=== PATIENT | male | born 1955 | race African-American/Black ===

== ENCOUNTER 2016-07-02 16:16 | Emergency (ER) | payer OTHER ==
[2016-07-02 16:24] VITALS: BP 125/71; PULSE 83; TEMP 97.6; BMI 23.7
[2016-07-02] MEDS ORDERED: NAPROXEN 375 MG TABLET (FP) PO ONE (16:53)
[2016-07-02] MEDS ORDERED: CYCLOBENZAPRINE HCL 10 MG TABLET (FP) PO ONE (16:54)
[2016-07-02] MEDS ORDERED: NAPROXEN 500 MG TABLET (FP) ONE (16:55)
[2016-07-02] MEDS ORDERED: CYCLOBENZAPRINE HCL 10 MG TABLET (FP) ONE (16:56)
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
== END 2016-07-02 19:48 | disposition home or self-care (01) ==
LOC: JERFT 16:16
DX: S16.1XXA Strain of muscle, fascia and tendon at neck level, initial encounter (principal); S39.012A Strain of muscle, fascia and tendon of lower back, initial encounter; V43.62XA Car passenger injured in collision with other type car in traffic accident, initial encounter; Y92.414 Local residential or business street as the place of occurrence of the external cause; Y99.8 Other external cause status
CPT/HCPCS: 72100-TC; 72125-TC; 99281-25

== ENCOUNTER 2017-05-08 16:01 | Inpatient (IN) | payer OTHER ==
[2017-05-08 17:56] VITALS: BMI 21.7
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
[2017-05-08] MEDS ORDERED: LOPERAMIDE HCL 2 MG CAPSULE PO PRN (21:22)
[2017-05-08] MEDS ORDERED: guaiFENesin/D-METHORPHAN HB 10 ML UNIT-DOSE CUPS PO PRN (21:22)
[2017-05-08] MEDS ORDERED: MAG HYDROX/AL HYDROX/SIMETH 30 ML UNIT-DOSE CUP PO PRN (21:22)
[2017-05-08] MEDS ORDERED: NICOTINE POLACRILEX 2 MG GUM BUC PRN (21:22)
[2017-05-08] MEDS ORDERED: hydrOXYzine PAMOATE 50 MG CAPSULE (FP) PO PRN (21:22)
[2017-05-08] MEDS ORDERED: ACETAMINOPHEN 325 MG TABLET (FP) PO PRN (21:22)
[2017-05-08] MEDS ORDERED: MAGNESIUM HYDROX 2400MG/30ML ORAL SUSPENSION 30 ML CUP PO PRN (21:22)
[2017-05-08] MEDS ORDERED: MENTHOL/PHENOL 1 EACH UD MM PRN (21:22)
[2017-05-08] MEDS ORDERED: P-EPHED 60MG/TRIPROLIDI 2.5MG TABLET PO PRN (21:22)
[2017-05-08] MEDS ORDERED: MAGNESIUM CITRATE 300 ML BOTTLE PO PRN (21:22)
[2017-05-08] MEDS ORDERED: IBUPROFEN 400 MG TABLET (FP) PO PRN (21:22)
[2017-05-08] MEDS ORDERED: diazePAM 5 MG TABLET PO ONE (21:45)
[2017-05-08] MEDS ORDERED: FLUTICASONE/SALMETEROL 100 MCG/50 MCG DISKUS IH SCH (22:00)
[2017-05-08] MEDS: amLODIPine BESYLATE 5 MG TABLET (FP) PO SCH (23:13)
[2017-05-08] MEDS: ATORVASTATIN CA 40 MG TABLET (FP) PO SCH (23:13)
[2017-05-08] MEDS: cloNIDine HCL 0.1 MG TABLET PO PRN (23:13)
[2017-05-08] MEDS: CYCLOBENZAPRINE HCL 10 MG TABLET (FP) PO PRN (23:13)
[2017-05-08] MEDS: BUDESONIDE/FORMETEROL FUMARATE 80/4.5 mcg INHALER IH SCH (23:13)
[2017-05-08] MEDS: ASPIRIN COATED 81 MG TABLET.EC PO SCH (23:13)
[2017-05-08] MEDS: THIAMINE HCL 100 MG TABLET (FP) PO SCH (23:20)
[2017-05-08] MEDS: diazePAM 5 MG TABLET PO SCH (23:20)
[2017-05-09 00:25] LABS: URINE APPEARANCE CLEAR; URINE BILIRUBIN NEGATIVE (NEGATIVE); URINE BLOOD NEGATIVE (NEGATIVE); URINE COLOR YELLOW; URINE GLUCOSE (UA) NEGATIVE (NEGATIVE); URINE KETONE TRACE (NEGATIVE); URINE LEUK ESTERASE NEGATIVE (NEGATIVE); URINE NITRITE NEGATIVE (NEGATIVE); URINE PROTEIN NEGATIVE (NEGATIVE)
[2017-05-09] MEDS: diazePAM 5 MG TABLET PO SCH ×3 (06:59→22:19)
--- NOTE | 2017-05-09 09:43 | PN ---
S CIWA - CIWA Score Nausea/Vomitin Muscle Tremors: 3 Anxiety: 3 Agitation: 3 Paroxysmal Sweats: 1-Minimal Palms Moist Orientation: 0-Oriented Tacttile Disturbances: 1-Very Mild Itch/Numbness Auditory Disturbances: 1-Very Mild Visual Disturbances: 1-Very Mild Sensitivity Headache: 2-Mild CIWA-Ar Total Score: 18 BHS Progress Note (SOAP) Subjective: ALERT,IRRITABLE,ANXIOUS,INTERRUPTED SLEEP,TREMOR,PAIN IN THE BODY Objective: 05/09/17 09:41 Vital Signs Temperature 97.2 F L 05/09/17 02:29 Pulse Rate 95 H 05/09/17 02:29 Respiratory Rate 18 05/09/17 03:30 Blood Pressure 122/67 05/09/17 02:29 O2 Sat by Pulse Oximetry (%) EKG NSR NO CHEST PAIN,NO SOB,NO DIZZINESS Laboratory Last Values Urine Color Yellow 05/08/17 23:10 Urine Appearance Clear 05/08/17 23:10 Urine pH 5.0 (5.0-8.0) 05/08/17 23:10 Ur Specific [place] 1.024 (1.001-1.035) 05/08/17 23:10 Urine Protein Negative (NEGATIVE) 05/08/17 23:10 Urine Glucose (UA) Negative (NEGATIVE) 05/08/17 23:10 Urine Ketones Trace (NEGATIVE) H 05/08/17 23:10 Urine Blood Negative (NEGATIVE) 05/08/17 23:10 Urine Nitrite Negative (NEGATIVE) 05/08/17 23:10 Urine Bilirubin Negative (NEGATIVE) 05/08/17 23:10 Urine Urobilinogen 2.0 mg/dL (0.2-1.0) 05/08/17 23:10 Ur Leukocyte Esterase Negative (NEGATIVE) 05/08/17 23:10 LABS PENDING Assessment: 05/09/17 09:42 WITHDRAWAL SYMPTOM Plan: CONTINUE DETOX
[2017-05-09 09:54] LABS: MCHC 32.7 g/dl (32.0-35.9); MEAN CELL VOLUME 91.8 fl (80-96); MEAN PLT VOLUME 8.4 fl (7.5-11.1); PLATELET COUNT 274 K/MM3 (134-434); RBC 5.01 M/mm3 (4.00-5.60); WHITE BLOOD COUNT 10.7 K/mm3 (4.0-10.0)
[2017-05-09] MEDS ORDERED: SERTRALINE HCL 25 MG TABLET (FP) PO SCH (10:00)
[2017-05-09 10:07] LABS: INR 1.06 (0.82-1.09)
[2017-05-09] MEDS: amLODIPine BESYLATE 5 MG TABLET (FP) PO SCH (10:20)
[2017-05-09] MEDS: PANTOPRAZOLE 20 MG TABLET (FP) PO SCH (10:20)
[2017-05-09] MEDS: cloNIDine HCL 0.1 MG TABLET PO PRN (10:20)
[2017-05-09] MEDS: PRENATAL VITAMINS W/ FOLIC ACID TABLET (FP) PO SCH (10:20)
[2017-05-09] MEDS: ASPIRIN COATED 81 MG TABLET.EC PO SCH (10:20)
[2017-05-09] MEDS: BUDESONIDE/FORMETEROL FUMARATE 80/4.5 mcg INHALER IH SCH ×2 (10:21→22:20)
[2017-05-09] MEDS: NICOTINE 14 MG/24 HOURS TOPICAL PATCH TD SCH (10:21)
[2017-05-09] MEDS: SERTRALINE HCL 25 MG TABLET (FP) PO SCH (10:22)
[2017-05-09 10:36] LABS: CHLORIDE 105 mmol/L (98-107); SODIUM 139 mmol/L (136-145)
[2017-05-09 10:52] LABS: ALBUMIN 3.6 g/dl (3.4-5.0); ALK PHOS 81 U/L (45-117); ANION GAP 8 (8-16); BILIRUBIN,TOTAL 1.5 mg/dL (0.2-1.0); BLOOD UREA NITROGEN 13 mg/dL (7-18); CALCIUM 8.3 mg/dL (8.5-10.1); CO2 26 mmol/L (21-32); CREATININE 1.1 mg/dL (0.7-1.3); GLUCOSE,RANDOM 96 mg/dL (74-106); SGOT/AST 15 U/L (15-37); SGPT/ALT 18 U/L (12-78); TOT PROT 6.6 g/dl (6.4-8.2)
[2017-05-09 10:59] LABS: SICKLE CELL SCREEN NEGATIVE (NEGATIVE)
--- NOTE | 2017-05-09 11:01 | EKG ---
Test Reason : Blood Pressure : / mmHG Vent. Rate : 091 BPM Atrial Rate : 091 BPM P-R Int : 192 ms QRS Dur : 080 ms QT Int : 360 ms P-R-T Axes : 029 017 040 degrees QTc Int : 442 ms NORMAL SINUS RHYTHM POSSIBLE LEFT ATRIAL ENLARGEMENT BORDERLINE ECG WHEN COMPARED WITH ECG OF 06-MAY-2005 04:13, NO SIGNIFICANT CHANGE WAS FOUND Confirmed by BRIAN ARMENTA MD ([id number]) on 05/09/2017 11:01:21 AM Referred By: Confirmed By:BRIAN ARMENTA MD
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
[2017-05-09] MEDS: CYANOCOBALAMIN (VITAMIN B-12) 100 MCG TABLET PO SCH (12:33)
[2017-05-09] MEDS: THIAMINE HCL 100 MG TABLET (FP) PO SCH (22:18)
[2017-05-09] MEDS: QUEtiapine FUMARATE 200 MG TABLET PO SCH (22:18)
[2017-05-09] MEDS: MIRTAZAPINE 15 MG TABLET (FP) PO SCH (22:19)
[2017-05-09] MEDS: ATORVASTATIN CA 40 MG TABLET (FP) PO SCH (22:19)
--- NOTE | 2017-05-10 09:46 | PN ---
S CIWA - CIWA Score Nausea/Vomitin Muscle Tremors: 3 Anxiety: 3 Agitation: 2 Paroxysmal Sweats: 1-Minimal Palms Moist Orientation: 0-Oriented Tacttile Disturbances: 1-Very Mild Itch/Numbness Auditory Disturbances: 1-Very Mild Visual Disturbances: 0-None Headache: 2-Mild CIWA-Ar Total Score: 16 BHS Progress Note (SOAP) Subjective: ALERT,IRRITABLE,ANXIOUS,INTERRUPTED SLEEP,TREMOR,PAIN IN THE BODY Objective: 05/10/17 09:44 Vital Signs Temperature 96.4 F L 05/10/17 06:00 Pulse Rate 76 05/10/17 06:00 Respiratory Rate 16 05/10/17 06:00 Blood Pressure 107/68 05/10/17 06:00 O2 Sat by Pulse Oximetry (%) Laboratory Last Values WBC 10.7 K/mm3 (4.0-10.0) H 05/09/17 07:30 RBC 5.01 M/mm3 (4.00-5.60) 05/09/17 07:30 Hgb 15.0 GM/dL (11.7-16.9) 05/09/17 07:30 Hct 46.0 % (35.4-49) 05/09/17 07:30 MCV 91.8 fl (80-96) 05/09/17 07:30 MCH 30.0 pg (25.7-33.7) 05/09/17 07:30 MCHC 32.7 g/dl (32.0-35.9) 05/09/17 07:30 RDW 15.0 % (11.9-15.9) 05/09/17 07:30 Plt Count 274 K/MM3 (134-434) 05/09/17 07:30 MPV 8.4 fl (7.5-11.1) 05/09/17 07:30 Sickle Cell Screen Negative (NEGATIVE) 05/09/17 07:30 PT with INR 12.00 SEC (9.98-11.88) H 05/09/17 07:30 INR 1.06 (0.82-1.09) D 05/09/17 07:30 Sodium 139 mmol/L (136-145) 05/09/17 07:30 Potassium 4.0 mmol/L (3.5-5.1) 05/09/17 07:30 Chloride 105 mmol/L (98-107) 05/09/17 07:30 Carbon Dioxide 26 mmol/L (21-32) 05/09/17 07:30 Anion Gap 8 (8-16) 05/09/17 07:30 BUN 13 mg/dL (7-18) 05/09/17 07:30 Creatinine 1.1 mg/dL (0.7-1.3) 05/09/17 07:30 Creat Clearance w eGFR > 60 (>60) 05/09/17 07:30 Random Glucose 96 mg/dL (74-106) 05/09/17 07:30 Calcium 8.3 mg/dL (8.5-10.1) L 05/09/17 07:30 Total Bilirubin 1.5 mg/dL (0.2-1.0) H D 05/09/17 07:30 AST 15 U/L (15-37) 05/09/17 07:30 ALT 18 U/L (12-78) 05/09/17 07:30 Alkaline Phosphatase 81 U/L (45-117) 05/09/17 07:30 Total Protein 6.6 g/dl (6.4-8.2) 05/09/17 07:30 Albumin 3.6 g/dl (3.4-5.0) 05/09/17 07:30 Urine Color Yellow 05/08/17 23:10 Urine Appearance Clear 05/08/17 23:10 Urine pH 5.0 (5.0-8.0) 05/08/17 23:10 Ur Specific [place] 1.024 (1.001-1.035) 05/08/17 23:10 Urine Protein Negative (NEGATIVE) 05/08/17 23:10 Urine Glucose (UA) Negative (NEGATIVE) 05/08/17 23:10 Urine Ketones Trace (NEGATIVE) H 05/08/17 23:10 Urine Blood Negative (NEGATIVE) 05/08/17 23:10 Urine Nitrite Negative (NEGATIVE) 05/08/17 23:10 Urine Bilirubin Negative (NEGATIVE) 05/08/17 23:10 Urine Urobilinogen 2.0 mg/dL (0.2-1.0) 05/08/17 23:10 Ur Leukocyte Esterase Negative (NEGATIVE) 05/08/17 23:10 RPR Titer Nonreactive (NONREACTIVE) 05/09/17 07:30 Hepatitis C Antibody <0.1 s/co ratio (0.0-0.9) 05/08/17 07:30 HIV 1&2 Antibody Screen Negative 05/09/17 07:30 HIV P24 Antigen Negative 05/09/17 07:30 Assessment: 05/10/17 09:45 WITHDRAWAL SYMPTOM Plan: CONTINUE DETOX,COUMADIN 7.5 MGS PO DAILY,REPEAT CBC,INR IN AM
[2017-05-10] MEDS: BUDESONIDE/FORMETEROL FUMARATE 80/4.5 mcg INHALER IH SCH ×2 (11:30→23:10)
[2017-05-10] MEDS: amLODIPine BESYLATE 5 MG TABLET (FP) PO SCH (12:10)
[2017-05-10] MEDS: PRENATAL VITAMINS W/ FOLIC ACID TABLET (FP) PO SCH (12:10)
[2017-05-10] MEDS: CYANOCOBALAMIN (VITAMIN B-12) 100 MCG TABLET PO SCH (12:10)
[2017-05-10] MEDS: PANTOPRAZOLE 20 MG TABLET (FP) PO SCH (12:10)
[2017-05-10] MEDS: diazePAM 5 MG TABLET PO SCH ×2 (12:10→22:08)
[2017-05-10] MEDS: ASPIRIN COATED 81 MG TABLET.EC PO SCH (12:11)
[2017-05-10] MEDS: SERTRALINE HCL 25 MG TABLET (FP) PO SCH (12:16)
[2017-05-10] MEDS: NICOTINE 14 MG/24 HOURS TOPICAL PATCH TD SCH (12:47)
[2017-05-10] MEDS: WARFARIN NA 7.5 MG TABLET (FP) PO SCH (17:32)
[2017-05-10] MEDS: diazePAM 5 MG TABLET PO PRN (17:39)
[2017-05-10] MEDS: QUEtiapine FUMARATE 200 MG TABLET PO SCH (22:08)
[2017-05-10] MEDS: MIRTAZAPINE 15 MG TABLET (FP) PO SCH (22:08)
[2017-05-10] MEDS: THIAMINE HCL 100 MG TABLET (FP) PO SCH (22:08)
[2017-05-10] MEDS: ATORVASTATIN CA 40 MG TABLET (FP) PO SCH (22:08)
--- NOTE | 2017-05-11 09:52 | PN ---
S Progress Note (SOAP) Subjective: alert,irritable,interrupted sleep Objective: 05/11/17 09:51 Vital Signs Temperature 96.6 F L 05/11/17 06:00 Pulse Rate 83 05/11/17 06:00 Respiratory Rate 18 05/11/17 06:00 Blood Pressure 115/71 05/11/17 06:00 O2 Sat by Pulse Oximetry (%) Assessment: 05/11/17 09:52 withdrawal symptom Plan: continue detox,repeat cbc pending,continue detox
[2017-05-11 09:57] LABS: BASO % 0.3 % (0-2.0); EOS % 1.7 % (0-4.5); HEMATOCRIT 42.2 % (35.4-49); HEMOGLOBIN 13.4 GM/dL (11.7-16.9); LYMPH % 23.4 % (8-40); MCH 29.5 pg (25.7-33.7); MCHC 31.8 g/dl (32.0-35.9); MEAN CELL VOLUME 92.9 fl (80-96); MEAN PLT VOLUME 8.6 fl (7.5-11.1); MONO % 11.3 % (3.8-10.2); NEUT % 63.3 % (42.8-82.8); PLATELET COUNT 238 K/MM3 (134-434); RBC 4.54 M/mm3 (4.00-5.60); RDW 15.1 % (11.9-15.9); WHITE BLOOD COUNT 7.9 K/mm3 (4.0-10.0)
[2017-05-11 10:14] LABS: INR 0.96 (0.82-1.09); PROTHROMBIN TIME (PATIENT) 10.8 SEC (9.98-11.88)
[2017-05-11] MEDS: PRENATAL VITAMINS W/ FOLIC ACID TABLET (FP) PO SCH (10:54)
[2017-05-11] MEDS: amLODIPine BESYLATE 5 MG TABLET (FP) PO SCH (10:54)
[2017-05-11] MEDS: SERTRALINE HCL 25 MG TABLET (FP) PO SCH (10:54)
[2017-05-11] MEDS: diazePAM 5 MG TABLET PO SCH ×2 (10:54→22:04)
[2017-05-11] MEDS: PANTOPRAZOLE 20 MG TABLET (FP) PO SCH (10:54)
[2017-05-11] MEDS: ASPIRIN COATED 81 MG TABLET.EC PO SCH (10:55)
[2017-05-11] MEDS: BUDESONIDE/FORMETEROL FUMARATE 80/4.5 mcg INHALER IH SCH ×2 (10:57→22:03)
[2017-05-11] MEDS: NICOTINE 14 MG/24 HOURS TOPICAL PATCH TD SCH (10:57)
[2017-05-11] MEDS: CYANOCOBALAMIN (VITAMIN B-12) 100 MCG TABLET PO SCH (10:59)
[2017-05-11] MEDS: WARFARIN NA 7.5 MG TABLET (FP) PO SCH (17:40)
[2017-05-11] MEDS: diazePAM 5 MG TABLET PO PRN (17:42)
[2017-05-11] MEDS: THIAMINE HCL 100 MG TABLET (FP) PO SCH (22:03)
[2017-05-11] MEDS: QUEtiapine FUMARATE 200 MG TABLET PO SCH (22:03)
[2017-05-11] MEDS: MIRTAZAPINE 15 MG TABLET (FP) PO SCH (22:03)
[2017-05-11] MEDS: CYCLOBENZAPRINE HCL 10 MG TABLET (FP) PO PRN (22:03)
[2017-05-11] MEDS: ATORVASTATIN CA 40 MG TABLET (FP) PO SCH (22:03)
--- NOTE | 2017-05-12 09:14 | PN ---
[facility] Progress Note (SOAP) Subjective: ALERT,IRRITABLE,HISORTY OF DVT RIGHT LEG INR ON 05/11/17 0.96 NOT THERAPEUTIC INR TODAY PENDING Objective: 05/12/17 09:15 Vital Signs Temperature 96.6 F L 05/12/17 06:44 Pulse Rate 78 05/12/17 06:44 Respiratory Rate 16 05/12/17 06:44 Blood Pressure 107/66 05/12/17 06:44 O2 Sat by Pulse Oximetry (%) Assessment: 05/12/17 09:16 WITHDRAWAL SYMPTOM Plan: CONTINUE DETOX,WILL TRY TO REGULATE COUMADIN AFTER RESULT OF PT TODAY
[2017-05-12] MEDS ORDERED: diazePAM 5 MG TABLET PO SCH (10:00)
[2017-05-12] MEDS: ASPIRIN COATED 81 MG TABLET.EC PO SCH (10:15)
[2017-05-12] MEDS: PANTOPRAZOLE 20 MG TABLET (FP) PO SCH (10:15)
[2017-05-12] MEDS: CYANOCOBALAMIN (VITAMIN B-12) 100 MCG TABLET PO SCH (10:15)
[2017-05-12] MEDS: SERTRALINE HCL 25 MG TABLET (FP) PO SCH (10:15)
[2017-05-12] MEDS: PRENATAL VITAMINS W/ FOLIC ACID TABLET (FP) PO SCH (10:15)
[2017-05-12] MEDS: amLODIPine BESYLATE 5 MG TABLET (FP) PO SCH (10:15)
[2017-05-12] MEDS: BUDESONIDE/FORMETEROL FUMARATE 80/4.5 mcg INHALER IH SCH ×2 (10:16→22:12)
[2017-05-12] MEDS: NICOTINE 14 MG/24 HOURS TOPICAL PATCH TD SCH (10:16)
[2017-05-12 12:39] LABS: INR 1.36 (0.82-1.09); PROTHROMBIN TIME (PATIENT) 15.4 SEC (9.98-11.88)
[2017-05-12] MEDS: WARFARIN NA 7.5 MG TABLET (FP) PO SCH (18:02)
[2017-05-12] MEDS: ATORVASTATIN CA 40 MG TABLET (FP) PO SCH (22:08)
[2017-05-12] MEDS: THIAMINE HCL 100 MG TABLET (FP) PO SCH (22:08)
[2017-05-12] MEDS: QUEtiapine FUMARATE 200 MG TABLET PO SCH (22:08)
[2017-05-12] MEDS: MIRTAZAPINE 15 MG TABLET (FP) PO SCH (22:10)
--- NOTE | 2017-05-13 08:44 | PN ---
[facility] Progress Note (SOAP) Subjective: mild sweat less tremor "little anxiety" tolerates food and fluid well Objective: 05/13/17 08:43 Vital Signs Temperature 97.0 F L 05/13/17 06:00 Pulse Rate 87 05/13/17 06:00 Respiratory Rate 18 05/13/17 06:00 Blood Pressure 119/76 05/13/17 06:00 O2 Sat by Pulse Oximetry (%) Laboratory Last Values WBC 7.9 K/mm3 (4.0-10.0) 05/11/17 07:30 RBC 4.54 M/mm3 (4.00-5.60) 05/11/17 07:30 Hgb 13.4 GM/dL (11.7-16.9) D 05/11/17 07:30 Hct 42.2 % (35.4-49) 05/11/17 07:30 MCV 92.9 fl (80-96) 05/11/17 07:30 MCH 29.5 pg (25.7-33.7) 05/11/17 07:30 MCHC 31.8 g/dl (32.0-35.9) L 05/11/17 07:30 RDW 15.1 % (11.9-15.9) 05/11/17 07:30 Plt Count 238 K/MM3 (134-434) 05/11/17 07:30 MPV 8.6 fl (7.5-11.1) 05/11/17 07:30 Neutrophils % 63.3 % (42.8-82.8) 05/11/17 07:30 Lymphocytes % 23.4 % (8-40) D 05/11/17 07:30 Monocytes % 11.3 % (3.8-10.2) H 05/11/17 07:30 Eosinophils % 1.7 % (0-4.5) D 05/11/17 07:30 Basophils % 0.3 % (0-2.0) 05/11/17 07:30 Sickle Cell Screen Negative (NEGATIVE) 05/09/17 07:30 PT with INR 15.40 SEC (9.98-11.88) H 05/12/17 09:15 INR 1.36 (0.82-1.09) H D 05/12/17 09:15 Sodium 139 mmol/L (136-145) 05/09/17 07:30 Potassium 4.0 mmol/L (3.5-5.1) 05/09/17 07:30 Chloride 105 mmol/L (98-107) 05/09/17 07:30 Carbon Dioxide 26 mmol/L (21-32) 05/09/17 07:30 Anion Gap 8 (8-16) 05/09/17 07:30 BUN 13 mg/dL (7-18) 05/09/17 07:30 Creatinine 1.1 mg/dL (0.7-1.3) 05/09/17 07:30 Creat Clearance w eGFR > 60 (>60) 05/09/17 07:30 Random Glucose 96 mg/dL (74-106) 05/09/17 07:30 Calcium 8.3 mg/dL (8.5-10.1) L 05/09/17 07:30 Total Bilirubin 1.5 mg/dL (0.2-1.0) H D 05/09/17 07:30 AST 15 U/L (15-37) 05/09/17 07:30 ALT 18 U/L (12-78) 05/09/17 07:30 Alkaline Phosphatase 81 U/L (45-117) 05/09/17 07:30 Total Protein 6.6 g/dl (6.4-8.2) 05/09/17 07:30 Albumin 3.6 g/dl (3.4-5.0) 05/09/17 07:30 Urine Color Yellow 05/08/17 23:10 Urine Appearance Clear 05/08/17 23:10 Urine pH 5.0 (5.0-8.0) 05/08/17 23:10 Ur Specific [place] 1.024 (1.001-1.035) 05/08/17 23:10 Urine Protein Negative (NEGATIVE) 05/08/17 23:10 Urine Glucose (UA) Negative (NEGATIVE) 05/08/17 23:10 Urine Ketones Trace (NEGATIVE) H 05/08/17 23:10 Urine Blood Negative (NEGATIVE) 05/08/17 23:10 Urine Nitrite Negative (NEGATIVE) 05/08/17 23:10 Urine Bilirubin Negative (NEGATIVE) 05/08/17 23:10 Urine Urobilinogen 2.0 mg/dL (0.2-1.0) 05/08/17 23:10 Ur Leukocyte Esterase Negative (NEGATIVE) 05/08/17 23:10 RPR Titer Nonreactive (NONREACTIVE) 05/09/17 07:30 Hepatitis C Antibody <0.1 s/co ratio (0.0-0.9) 05/08/17 07:30 HIV 1&2 Antibody Screen Negative 05/09/17 07:30 HIV P24 Antigen Negative 05/09/17 07:30 lab noted Assessment: 05/13/17 09:41 mild withdrawal sx Plan: medically supervised detox
[2017-05-13] MEDS: PRENATAL VITAMINS W/ FOLIC ACID TABLET (FP) PO SCH (10:16)
[2017-05-13] MEDS: ASPIRIN COATED 81 MG TABLET.EC PO SCH (10:16)
[2017-05-13] MEDS: PANTOPRAZOLE 20 MG TABLET (FP) PO SCH (10:16)
[2017-05-13] MEDS: NICOTINE 14 MG/24 HOURS TOPICAL PATCH TD SCH (10:17)
[2017-05-13] MEDS: CYANOCOBALAMIN (VITAMIN B-12) 100 MCG TABLET PO SCH (10:17)
[2017-05-13] MEDS: BUDESONIDE/FORMETEROL FUMARATE 80/4.5 mcg INHALER IH SCH ×2 (10:17→22:20)
[2017-05-13] MEDS: SERTRALINE HCL 25 MG TABLET (FP) PO SCH (10:17)
[2017-05-13] MEDS: amLODIPine BESYLATE 5 MG TABLET (FP) PO SCH (10:17)
[2017-05-13] MEDS: WARFARIN NA 7.5 MG TABLET (FP) PO SCH (18:06)
[2017-05-13] MEDS: THIAMINE HCL 100 MG TABLET (FP) PO SCH (22:32)
[2017-05-13] MEDS: ATORVASTATIN CA 40 MG TABLET (FP) PO SCH (22:32)
[2017-05-13] MEDS: QUEtiapine FUMARATE 200 MG TABLET PO SCH (22:32)
[2017-05-13] MEDS: MIRTAZAPINE 15 MG TABLET (FP) PO SCH (22:32)
[2017-05-14 06:35] VITALS: BP 120/77; PULSE 68; TEMP 98.1
--- NOTE | 2017-05-14 09:04 | DS ---
[facility] Detox Discharge Summary Admission Date: 05/08/17 Discharge Date: 05/14/17 - History Present History: Alcohol Dependence, Cannabis Dependence, Cocaine Dependence Additional Comments: follow up with after care program as arrangement Pertinent Past History: dvt hearing loss left history of cva nicotine dependence weight loss gerd hyperlipidemia - Physical Exam Results Vital Signs: Vital Signs Temperature 98.1 F 05/14/17 06:00 Pulse Rate 68 05/14/17 06:00 Respiratory Rate 18 05/14/17 06:00 Blood Pressure 120/77 05/14/17 06:00 O2 Sat by Pulse Oximetry (%) Pertinent Admission Physical Exam Findings: withdrawal signs and symptom - Treatment Hospital Course: Detox Protocol Followed, Detoxed Safely, Responded well, Discharged Condition Good Patient has Accepted a Rehab Referral to: declined - Medication Discharge Medications: Ambulatory Orders Warfarin Sodium [Coumadin] 7.5 mg PO DAILY 02/03/12 Cyanocobalamin [Vitamin B12 -] 100 mcg PO DAILY 05/26/14 Cyclobenzaprine HCl [Flexeril -] 10 mg PO TID PRN 05/26/14 Naproxen [Naprosyn -] 500 mg PO BID 05/26/14 Clotrimazole/Betamet Diprop [Lotrisone -] 1 applic TP BID #1 tube 06/02/14 Famotidine [Pepcid -] 20 mg PO DAILY 03/16/15 Dicyclomine HCl [Bentyl] 20 mg PO TID #30 tablet 03/24/15 Thiamine HCl [Vitamin B1 -] 100 mg PO HS #30 tablet 05/03/15 Warfarin Na [Coumadin -] 5 mg PO SUTUTHSA #20 05/03/15 Mirtazapine [Remeron -] 15 mg PO HS #30 tablet 12/28/15 Quetiapine Fumarate [Seroquel -] 200 mg PO HS #30 tablet 12/28/15 Salmeterol/Fluticasone [Advair 100Mcg/50Mcg -] 250 mcg IH BID #1 cartridge 12/27 Simvastatin [Zocor -] 40 mg PO HS #30 tablet 12/28/15 Warfarin Na [Coumadin -] 7.5 mg PO Q2D@1800 #30 tablet 12/28/15 Cyclobenzaprine HCl [Flexeril 10 mg] 10 mg PO BID PRN #7 tablet 07/02/16 Naproxen [EC-Naprosyn 375 MG] 375 mg PO BID #6 tablet.ec 07/02/16 Naproxen [Naprosyn -] 500 mg PO ONCE #2 tablet 07/02/16 Amlodipine Besylate [Norvasc -] 5 mg PO DAILY 05/08/17 Mirtazapine [Remeron -] 15 mg PO HS #30 tablet 05/09/17 Quetiapine Fumarate [Seroquel -] 200 mg PO HS #30 tab 05/09/17 Quetiapine Fumarate [Seroquel -] 200 mg PO HS #30 tablet 05/09/17 Sertraline HCl 25 mg PO DAILY #30 tablet 05/09/17 Sertraline HCl [Zoloft -] 25 mg PO DAILY #30 tablet 05/09/17 - Diagnosis (1) Alcohol dependence with uncomplicated withdrawal Current Visit: Yes Status: Acute (2) GERD (gastroesophageal reflux disease) Current Visit: Yes Status: Chronic Qualifiers: Esophagitis presence: esophagitis presence not specified Qualified Code(s) : K21.9 - Gastro-esophageal reflux disease without esophagitis (3) H/O: CVA (cerebrovascular accident) Current Visit: Yes Status: Chronic (4) Hearing loss in left ear Current Visit: Yes Status: Chronic Qualifiers: Hearing loss type: unspecified Qualified Code(s): H91.92 - Unspecified hearing loss, left ear (5) Hx of deep venous thrombosis Current Visit: Yes Status: Chronic (6) Hyperlipidemia Current Visit: Yes Status: Chronic Qualifiers: Hyperlipidemia type: unspecified Qualified Code(s): E78.5 - Hyperlipidemia , unspecified (7) Nicotine dependence Current Visit: Yes Status: Chronic Qualifiers: Nicotine product type: cigarettes Substance use status: uncomplicated Qualified Code(s): F17.210 - Nicotine dependence, cigarettes, uncomplicated (8) PTSD (post-traumatic stress disorder) Current Visit: Yes Status: Chronic (9) Weight loss Current Visit: Yes Status: Chronic (10) S/P lobectomy of lung Current Visit: No Status: Chronic (11) Cocaine dependence Current Visit: No Status: Chronic Qualifiers: Substance use status: uncomplicated Qualified Code(s): F14.20 - Cocaine dependence, uncomplicated (12) DVT (deep venous thrombosis) Current Visit: No Status: Chronic Qualifiers: DVT location: lower extremity Chronicity: chronic Laterality: unspecified laterality - AMA Did Patient Leave Against Medical Advice: No
--- NOTE | 2017-05-14 09:11 | PN ---
[facility] Progress Note Note: patient will follow up with [facility] for regulation of coumadin
[2017-05-14] MEDS: CYANOCOBALAMIN (VITAMIN B-12) 100 MCG TABLET PO SCH (09:32)
[2017-05-14] MEDS: PRENATAL VITAMINS W/ FOLIC ACID TABLET (FP) PO SCH (09:32)
[2017-05-14] MEDS: SERTRALINE HCL 25 MG TABLET (FP) PO SCH (09:32)
[2017-05-14] MEDS: ASPIRIN COATED 81 MG TABLET.EC PO SCH (09:32)
[2017-05-14] MEDS: PANTOPRAZOLE 20 MG TABLET (FP) PO SCH (09:35)
[2017-05-14] MEDS: BUDESONIDE/FORMETEROL FUMARATE 80/4.5 mcg INHALER IH SCH (09:36)
== END 2017-05-14 10:18 | disposition home or self-care (01) | DRG 897 ==
LOC: YASAS 16:01 → Y6N 20:29
PROVIDERS: ADMIT Internal Medicine; ATTEND Internal Medicine
PROC: HZ2ZZZZ Detoxification Services for Substance Abuse Treatment (ICD-10-PCS; principal; 2017-05-08)
DX: F10.230 Alcohol dependence with withdrawal, uncomplicated (principal); F14.20 Cocaine dependence, uncomplicated; I82.409 Acute embolism and thrombosis of unspecified deep veins of unspecified lower extremity; F17.210 Nicotine dependence, cigarettes, uncomplicated; F43.10 Post-traumatic stress disorder, unspecified; K21.9 Gastro-esophageal reflux disease without esophagitis; H91.92 Unspecified hearing loss, left ear; E78.5 Hyperlipidemia, unspecified; J45.909 Unspecified asthma, uncomplicated; R01.1 Cardiac murmur, unspecified; Z91.14 Patient's other noncompliance with medication regimen; Z86.73 Personal history of transient ischemic attack (TIA), and cerebral infarction without residual deficits; Z79.01 Long term (current) use of anticoagulants; Z90.2 Acquired absence of lung [part of]; Z91.013 Allergy to seafood; Z91.048 Other nonmedicinal substance allergy status; Z87.898 Personal history of other specified conditions
CPT/HCPCS: 36415; 80053; 81003; 85025; 85027; 85610; 85660; 86593; 86803; 87389; 93005; 93010; J0735

== ENCOUNTER 2018-06-29 21:07 | Inpatient (IN) | payer OTHER ==
[2018-06-29] MEDS ORDERED: MELATONIN 5 MG TABLETS PO PRN (22:00)
[2018-06-29 22:22] VITALS: BMI 24.2
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
[2018-06-29] MEDS ORDERED: LOPERAMIDE HCL 2 MG CAPSULE PO PRN (23:33)
[2018-06-29] MEDS ORDERED: MAGNESIUM CITRATE 300 ML BOTTLE PO PRN (23:33)
[2018-06-29] MEDS ORDERED: NICOTINE POLACRILEX 2 MG GUM BC PRN (23:33)
[2018-06-29] MEDS ORDERED: P-EPHED 60MG/TRIPROLIDI 2.5MG TABLET PO PRN (23:33)
[2018-06-29] MEDS ORDERED: IBUPROFEN 400 MG TABLET (FP) PO PRN (23:33)
[2018-06-29] MEDS ORDERED: hydrOXYzine PAMOATE 50 MG CAPSULE (FP) PO PRN (23:33)
[2018-06-29] MEDS ORDERED: MAGNESIUM HYDROX 2400MG/30ML ORAL SUSPENSION 30 ML CUP PO PRN (23:33)
[2018-06-29] MEDS ORDERED: guaiFENesin 200 MG/10 ML 10 ML UNIT-DOSE CUPS PO PRN (23:33)
[2018-06-29] MEDS ORDERED: MAG HYDROX/AL HYDROX/SIMETH 30 ML UNIT-DOSE CUP PO PRN (23:33)
[2018-06-30] MEDS ORDERED: ALBUTEROL SO4 2.5/IPRATROPIUM 0.5 INH SOL 3 ML VIAL.NEB. NEB PRN (00:20)
[2018-06-30] MEDS: MENTHOL/PHENOL 1 EACH UD MM PRN (00:58)
[2018-06-30] MEDS ORDERED: TUBERCULIN PPD 5 TU/0.1ML VIAL ID ONE (01:08)
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
[2018-06-30 09:52] LABS: HEMATOCRIT 41.8 % (35.4-49); MCH 30.3 pg (25.7-33.7); MCHC 33.5 g/dl (32.0-35.9); MEAN CELL VOLUME 90.4 fl (80-96); MEAN PLT VOLUME 8.8 fl (7.5-11.1); PLATELET COUNT 229 K/MM3 (134-434); RBC 4.63 M/mm3 (4.00-5.60); RDW 14.4 % (11.9-15.9); WHITE BLOOD COUNT 12.6 K/mm3 (4.0-10.0)
[2018-06-30 10:00] LABS: ALBUMIN 3.6 g/dl (3.4-5.0); ALK PHOS 73 U/L (45-117); ANION GAP 7 MMOL/L (8-16); BILIRUBIN,TOTAL 0.8 mg/dL (0.2-1); BLOOD UREA NITROGEN 27 mg/dL (7-18); CALCIUM 8.5 mg/dL (8.5-10.1); CHLORIDE 103 mmol/L (98-107); CO2 26 mmol/L (21-32); CREATININE 1.2 mg/dL (0.55-1.3); GLUCOSE,RANDOM 120 mg/dL (74-106); POTASSIUM 3.5 mmol/L (3.5-5.1); SGOT/AST 110 U/L (15-37); SGPT/ALT 58 U/L (13-61); SODIUM 137 mmol/L (136-145); TOT PROT 7.2 g/dl (6.4-8.2)
[2018-06-30] MEDS: ASPIRIN COATED 81 MG TABLET.EC PO SCH (10:14)
[2018-06-30] MEDS: RANITIDINE HCL 150 MG TABLET (FP) PO SCH ×2 (10:14→21:30)
[2018-06-30] MEDS: PRENATAL VITAMINS W/ FOLIC ACID TABLET (FP) PO SCH (10:14)
[2018-06-30] MEDS: BUDESONIDE/FORMETEROL FUMARATE 80/4.5 mcg INHALER IH SCH ×2 (10:16→21:33)
[2018-06-30] MEDS: NICOTINE 14 MG/24 HOURS TOPICAL PATCH TD SCH (10:18)
[2018-06-30] MEDS: LISINOPRIL 5 MG TABLET (FP) PO SCH (11:06)
[2018-06-30] MEDS: amLODIPine BESYLATE 5 MG TABLET (FP) PO SCH (11:06)
[2018-06-30] MEDS: SERTRALINE HCL 50 MG TABLET (FP) PO SCH (14:30)
--- NOTE | 2018-06-30 17:58 | EKG ---
Test Reason : Blood Pressure : / mmHG Vent. Rate : 086 BPM Atrial Rate : 086 BPM P-R Int : 162 ms QRS Dur : 086 ms QT Int : 390 ms P-R-T Axes : 044 035 036 degrees QTc Int : 466 ms NORMAL SINUS RHYTHM NORMAL ECG WHEN COMPARED WITH ECG OF 08-MAY-2017 23:02, NO SIGNIFICANT CHANGE WAS FOUND Confirmed by UZAIR EARLY MD ([id number]) on 06/30/2018 5:57:34 PM Referred By: Confirmed By:UZAIR EARLY MD
[2018-06-30] MEDS: THIAMINE HCL 100 MG TABLET (FP) PO SCH (21:30)
[2018-06-30] MEDS: QUEtiapine FUMARATE 200 MG TABLET PO SCH (21:33)
[2018-06-30] MEDS: MIRTAZAPINE 15 MG TABLET (FP) PO SCH (21:33)
[2018-06-30] MEDS: LATANOPROST 0.005% OPHTH SOLN 2.5ML BOTTLE OD SCH (22:52)
[2018-07-01] MEDS: MENTHOL/PHENOL 1 EACH UD MM PRN ×2 (06:36→15:32)
[2018-07-01] MEDS: NICOTINE 14 MG/24 HOURS TOPICAL PATCH TD SCH (10:42)
[2018-07-01] MEDS: SERTRALINE HCL 50 MG TABLET (FP) PO SCH (10:42)
[2018-07-01] MEDS: ASPIRIN COATED 81 MG TABLET.EC PO SCH (10:43)
[2018-07-01] MEDS: BUDESONIDE/FORMETEROL FUMARATE 80/4.5 mcg INHALER IH SCH ×2 (10:43→21:28)
[2018-07-01] MEDS: amLODIPine BESYLATE 5 MG TABLET (FP) PO SCH (10:43)
[2018-07-01] MEDS: PRENATAL VITAMINS W/ FOLIC ACID TABLET (FP) PO SCH (10:43)
[2018-07-01] MEDS: RANITIDINE HCL 150 MG TABLET (FP) PO SCH ×2 (10:43→21:28)
[2018-07-01] MEDS: LISINOPRIL 5 MG TABLET (FP) PO SCH (10:43)
--- NOTE | 2018-07-01 11:56 | PN ---
[facility] Progress Note Note: PT ON ELIQUIST BUT UNABLE TO VERIFY CORRECT DOSE OR PHARMACY ON ADMISSION( [facility] IND[facility]ATED [facility], [place]). [facility] RECORDED PHONE IS NOT IN SERVICE. THIS SLAUGHTERER RELIGIOUS RITUAL CALLED ANOTHER PT'S PHARMACY WHICH HE NOW PROVIDES [facility] WHO VERIFIED PT LAST PICKED UP FROM THEM IN 2017 AND ON 5 MG PO BID ORDERED BY DR GOMEZ AT [place], [place]. Vital Signs - 24 hr 07/01/18 07/01/18 07/01/18 00:30 03:30 06:40 Temperature 97.8 F Pulse Rate 88 Respiratory 18 18 18 Rate Blood Pressure 121/66 Laboratory Tests 06/30/18 06/30/18 06/30/18 07:50 07:50 07:50 WBC 12.6 H RBC 4.63 Hgb 14.0 Hct 41.8 MCV 90.4 MCH 30.3 MCHC 33.5 RDW 14.4 Plt Count 229 MPV 8.8 Sodium 137 Potassium 3.5 Chloride 103 Carbon Dioxide 26 Anion Gap 7 L BUN 27 H Creatinine 1.2 Creat Clearance w eGFR 61.35 Random Glucose 120 H Calcium 8.5 Total Bilirubin 0.8 AST 110 H ALT 58 Alkaline Phosphatase 73 Total Protein 7.2 Albumin 3.6 RPR Titer Nonreactive NAD PLAN;REORDER PT'S MED OF ELIQUIST 5 MG PO BID. FIRST DOSE GIVEN NOW. PT REPORTS HE HAS ALL HIS MEDS AT HOME.
[2018-07-01] MEDS ORDERED: APIXABAN 5 MG TABLET PO ONE (12:00)
[2018-07-01] MEDS ORDERED: APIXABAN 2.5 MG TABLET PO ONE ×2 (12:00)
[2018-07-01] MEDS: APIXABAN 5 MG TABLET PO SCH ×3 (14:19→21:30)
[2018-07-01] MEDS ORDERED: ALBUTEROL SO4 8 GM HFA INHALER IH PRN (15:03)
[2018-07-01] MEDS: SERTRALINE HCL 25 MG TABLET (FP) PO SCH (15:32)
[2018-07-01] MEDS: MIRTAZAPINE 15 MG TABLET (FP) PO SCH (21:28)
[2018-07-01] MEDS: THIAMINE HCL 100 MG TABLET (FP) PO SCH (21:29)
[2018-07-01] MEDS: QUEtiapine FUMARATE 200 MG TABLET PO SCH (21:29)
[2018-07-01] MEDS: LATANOPROST 0.005% OPHTH SOLN 2.5ML BOTTLE OD SCH (21:31)
[2018-07-02] MEDS: ACETAMINOPHEN 325 MG TABLET (FP) PO PRN ×2 (06:16→10:18)
[2018-07-02] MEDS: MENTHOL/PHENOL 1 EACH UD MM PRN (07:10)
[2018-07-02] MEDS: BUDESONIDE/FORMETEROL FUMARATE 80/4.5 mcg INHALER IH SCH ×2 (10:16→21:25)
[2018-07-02] MEDS: SERTRALINE HCL 25 MG TABLET (FP) PO SCH (10:17)
[2018-07-02] MEDS: amLODIPine BESYLATE 5 MG TABLET (FP) PO SCH (10:17)
[2018-07-02] MEDS: LISINOPRIL 5 MG TABLET (FP) PO SCH (10:17)
[2018-07-02] MEDS: APIXABAN 5 MG TABLET PO SCH ×2 (10:17→21:24)
[2018-07-02] MEDS: RANITIDINE HCL 150 MG TABLET (FP) PO SCH ×2 (10:17→21:24)
[2018-07-02] MEDS: PRENATAL VITAMINS W/ FOLIC ACID TABLET (FP) PO SCH (10:17)
[2018-07-02] MEDS: ASPIRIN COATED 81 MG TABLET.EC PO SCH (10:17)
[2018-07-02] MEDS: NICOTINE 14 MG/24 HOURS TOPICAL PATCH TD SCH (10:17)
[2018-07-02 11:17] LABS: URINE APPEARANCE CLEAR; URINE BILIRUBIN NEGATIVE (NEGATIVE); URINE COLOR YELLOW; URINE GLUCOSE (UA) NEGATIVE (NEGATIVE); URINE KETONE NEGATIVE (NEGATIVE); URINE LEUK ESTERASE NEGATIVE (NEGATIVE); URINE NITRITE NEGATIVE (NEGATIVE); URINE PROTEIN NEGATIVE (NEGATIVE); URINE UROBILINOGEN 0.2 mg/dL (0.2-1.0)
[2018-07-02] MEDS: MIRTAZAPINE 15 MG TABLET (FP) PO SCH (21:24)
[2018-07-02] MEDS: QUEtiapine FUMARATE 200 MG TABLET PO SCH (21:24)
[2018-07-02] MEDS: THIAMINE HCL 100 MG TABLET (FP) PO SCH (21:24)
[2018-07-02] MEDS: LATANOPROST 0.005% OPHTH SOLN 2.5ML BOTTLE OD SCH (21:25)
[2018-07-03] MEDS: SERTRALINE HCL 25 MG TABLET (FP) PO SCH (10:15)
[2018-07-03] MEDS: RANITIDINE HCL 150 MG TABLET (FP) PO SCH ×2 (10:15→21:19)
[2018-07-03] MEDS: amLODIPine BESYLATE 5 MG TABLET (FP) PO SCH (10:15)
[2018-07-03] MEDS: BUDESONIDE/FORMETEROL FUMARATE 80/4.5 mcg INHALER IH SCH ×2 (10:15→21:20)
[2018-07-03] MEDS: APIXABAN 5 MG TABLET PO SCH ×2 (10:15→21:19)
[2018-07-03] MEDS: NICOTINE 14 MG/24 HOURS TOPICAL PATCH TD SCH (10:15)
[2018-07-03] MEDS: ASPIRIN COATED 81 MG TABLET.EC PO SCH (10:15)
[2018-07-03] MEDS: PRENATAL VITAMINS W/ FOLIC ACID TABLET (FP) PO SCH (10:15)
[2018-07-03] MEDS: LISINOPRIL 5 MG TABLET (FP) PO SCH (10:16)
[2018-07-03] MEDS: MENTHOL/PHENOL 1 EACH UD MM PRN (10:50)
[2018-07-03] MEDS: LIDOCAINE 5% TOPICAL PATCH TP SCH (13:40)
[2018-07-03] MEDS: THIAMINE HCL 100 MG TABLET (FP) PO SCH (21:19)
[2018-07-03] MEDS: QUEtiapine FUMARATE 200 MG TABLET PO SCH (21:19)
[2018-07-03] MEDS: MIRTAZAPINE 15 MG TABLET (FP) PO SCH (21:19)
[2018-07-03] MEDS: CYCLOBENZAPRINE HCL 5 MG TABLET PO PRN (21:19)
[2018-07-03] MEDS: LATANOPROST 0.005% OPHTH SOLN 2.5ML BOTTLE OD SCH (21:20)
[2018-07-03] MEDS: LIDOCAINE PATCH REMOVAL MC SCH (21:33)
[2018-07-04] MEDS: ACETAMINOPHEN 325 MG TABLET (FP) PO PRN (07:06)
[2018-07-04] MEDS: LISINOPRIL 5 MG TABLET (FP) PO SCH (09:46)
[2018-07-04] MEDS: SERTRALINE HCL 25 MG TABLET (FP) PO SCH (09:46)
[2018-07-04] MEDS: BUDESONIDE/FORMETEROL FUMARATE 80/4.5 mcg INHALER IH SCH ×2 (09:46→21:26)
[2018-07-04] MEDS: LIDOCAINE 5% TOPICAL PATCH TP SCH (09:46)
[2018-07-04] MEDS: APIXABAN 5 MG TABLET PO SCH ×2 (09:46→21:26)
[2018-07-04] MEDS: amLODIPine BESYLATE 5 MG TABLET (FP) PO SCH (09:46)
[2018-07-04] MEDS: ASPIRIN COATED 81 MG TABLET.EC PO SCH (09:46)
[2018-07-04] MEDS: RANITIDINE HCL 150 MG TABLET (FP) PO SCH ×2 (09:46→21:26)
[2018-07-04] MEDS: PRENATAL VITAMINS W/ FOLIC ACID TABLET (FP) PO SCH (09:46)
[2018-07-04] MEDS: NICOTINE 14 MG/24 HOURS TOPICAL PATCH TD SCH (09:48)
[2018-07-04] MEDS: MENTHOL/PHENOL 1 EACH UD MM PRN (15:46)
[2018-07-04] MEDS: CYCLOBENZAPRINE HCL 5 MG TABLET PO PRN (21:26)
[2018-07-04] MEDS: THIAMINE HCL 100 MG TABLET (FP) PO SCH (21:26)
[2018-07-04] MEDS: QUEtiapine FUMARATE 200 MG TABLET PO SCH (21:26)
[2018-07-04] MEDS: MIRTAZAPINE 15 MG TABLET (FP) PO SCH (21:26)
[2018-07-04] MEDS: LIDOCAINE PATCH REMOVAL MC SCH (21:27)
[2018-07-04] MEDS: LATANOPROST 0.005% OPHTH SOLN 2.5ML BOTTLE OD SCH (21:45)
[2018-07-05] MEDS: PRENATAL VITAMINS W/ FOLIC ACID TABLET (FP) PO SCH (10:38)
[2018-07-05] MEDS: RANITIDINE HCL 150 MG TABLET (FP) PO SCH ×2 (10:38→21:30)
[2018-07-05] MEDS: BUDESONIDE/FORMETEROL FUMARATE 80/4.5 mcg INHALER IH SCH ×2 (10:38→21:31)
[2018-07-05] MEDS: amLODIPine BESYLATE 5 MG TABLET (FP) PO SCH (10:38)
[2018-07-05] MEDS: LISINOPRIL 5 MG TABLET (FP) PO SCH (10:38)
[2018-07-05] MEDS: APIXABAN 5 MG TABLET PO SCH ×2 (10:38→21:30)
[2018-07-05] MEDS: ASPIRIN COATED 81 MG TABLET.EC PO SCH (10:38)
[2018-07-05] MEDS: SERTRALINE HCL 25 MG TABLET (FP) PO SCH (10:38)
[2018-07-05] MEDS: LIDOCAINE 5% TOPICAL PATCH TP SCH (10:39)
[2018-07-05] MEDS: NICOTINE 14 MG/24 HOURS TOPICAL PATCH TD SCH (10:39)
[2018-07-05] MEDS ORDERED: ALBUTEROL SO4 2.5/IPRATROPIUM 0.5 INH SOL 3 ML VIAL.NEB. NEB PRN (11:22)
[2018-07-05] MEDS: ACETAMINOPHEN 325 MG TABLET (FP) PO PRN (15:13)
--- NOTE | 2018-07-05 16:03 | PN ---
[facility] Progress Note Note: PT C/O PAIN TO SOLES OF FEET. Vital Signs - 24 hr 07/05/18 07/05/18 07/05/18 00:30 03:30 06:59 Temperature 97.4 F L Pulse Rate 98 H Respiratory 18 18 18 Rate Blood Pressure 121/80 07/05/18 10:00 Temperature Pulse Rate 108 H Respiratory Rate Blood Pressure 146/73 FEET EXAM: EXTREME DRY AND SCALY FEET AND LOWER EXTREMITIES INCLUDING HANDS. AREAS OF CRACKS/SMALL ABRASION ESPECIALLY TO RIGHT FEET. A:DY SKIN PLAN:BACITRACIN OINTMENT APPLY DIRECTED AMMONIUM LACTATE 12% LOTION APPLY BID AFTER BATH AND WASHING.
[2018-07-05] MEDS: QUEtiapine FUMARATE 200 MG TABLET PO SCH (21:30)
[2018-07-05] MEDS: THIAMINE HCL 100 MG TABLET (FP) PO SCH (21:30)
[2018-07-05] MEDS: LIDOCAINE PATCH REMOVAL MC SCH (21:31)
[2018-07-05] MEDS: BACITRACIN 0.9 GM PACKET TP SCH (21:31)
[2018-07-05] MEDS: LATANOPROST 0.005% OPHTH SOLN 2.5ML BOTTLE OD SCH (21:32)
[2018-07-05] MEDS: AMMONIUM LACTATE 12% LOTION 225 GM BOTTLE TP SCH (21:33)
[2018-07-05] MEDS: MIRTAZAPINE 15 MG TABLET (FP) PO SCH (21:33)
[2018-07-06] MEDS: PRENATAL VITAMINS W/ FOLIC ACID TABLET (FP) PO SCH (09:58)
[2018-07-06] MEDS: RANITIDINE HCL 150 MG TABLET (FP) PO SCH ×2 (09:58→21:18)
[2018-07-06] MEDS: LISINOPRIL 5 MG TABLET (FP) PO SCH (09:58)
[2018-07-06] MEDS: APIXABAN 5 MG TABLET PO SCH ×2 (09:58→21:18)
[2018-07-06] MEDS: LIDOCAINE 5% TOPICAL PATCH TP SCH (09:58)
[2018-07-06] MEDS: BACITRACIN 0.9 GM PACKET TP SCH ×2 (09:58→21:18)
[2018-07-06] MEDS: NICOTINE 14 MG/24 HOURS TOPICAL PATCH TD SCH (09:58)
[2018-07-06] MEDS: SERTRALINE HCL 25 MG TABLET (FP) PO SCH (09:58)
[2018-07-06] MEDS: amLODIPine BESYLATE 5 MG TABLET (FP) PO SCH (09:58)
[2018-07-06] MEDS: BUDESONIDE/FORMETEROL FUMARATE 80/4.5 mcg INHALER IH SCH ×2 (09:58→21:19)
[2018-07-06] MEDS: ASPIRIN COATED 81 MG TABLET.EC PO SCH (09:58)
[2018-07-06] MEDS: AMMONIUM LACTATE 12% LOTION 225 GM BOTTLE TP SCH ×2 (10:00→21:21)
[2018-07-06] MEDS: MIRTAZAPINE 15 MG TABLET (FP) PO SCH (21:18)
[2018-07-06] MEDS: LATANOPROST 0.005% OPHTH SOLN 2.5ML BOTTLE OD SCH (21:18)
[2018-07-06] MEDS: QUEtiapine FUMARATE 200 MG TABLET PO SCH (21:18)
[2018-07-06] MEDS: THIAMINE HCL 100 MG TABLET (FP) PO SCH (21:18)
[2018-07-06] MEDS: LIDOCAINE PATCH REMOVAL MC SCH (21:21)
[2018-07-07] MEDS: ASPIRIN COATED 81 MG TABLET.EC PO SCH (10:21)
[2018-07-07] MEDS: APIXABAN 5 MG TABLET PO SCH ×2 (10:21→21:16)
[2018-07-07] MEDS: BACITRACIN 0.9 GM PACKET TP SCH ×2 (10:21→21:18)
[2018-07-07] MEDS: amLODIPine BESYLATE 5 MG TABLET (FP) PO SCH (10:21)
[2018-07-07] MEDS: PRENATAL VITAMINS W/ FOLIC ACID TABLET (FP) PO SCH (10:21)
[2018-07-07] MEDS: AMMONIUM LACTATE 12% LOTION 225 GM BOTTLE TP SCH ×2 (10:22→21:18)
[2018-07-07] MEDS: NICOTINE 14 MG/24 HOURS TOPICAL PATCH TD SCH (10:22)
[2018-07-07] MEDS: RANITIDINE HCL 150 MG TABLET (FP) PO SCH ×2 (10:25→21:16)
[2018-07-07] MEDS: LISINOPRIL 5 MG TABLET (FP) PO SCH (10:25)
[2018-07-07] MEDS: SERTRALINE HCL 25 MG TABLET (FP) PO SCH (10:25)
[2018-07-07] MEDS: LIDOCAINE 5% TOPICAL PATCH TP SCH (10:25)
[2018-07-07] MEDS: BUDESONIDE/FORMETEROL FUMARATE 80/4.5 mcg INHALER IH SCH ×2 (10:27→21:17)
--- NOTE | 2018-07-07 14:17 | PN ---
[facility] Progress Note Note: Patient is scheduled for discharge tomorrow. Scripts for medications(Seroquel, Remeron, Zoloft) will be electronically transmitted to [facility] at [address] [place] [address]
[2018-07-07] MEDS: MIRTAZAPINE 15 MG TABLET (FP) PO SCH (21:16)
[2018-07-07] MEDS: CYCLOBENZAPRINE HCL 5 MG TABLET PO PRN (21:16)
[2018-07-07] MEDS: QUEtiapine FUMARATE 200 MG TABLET PO SCH (21:16)
[2018-07-07] MEDS: THIAMINE HCL 100 MG TABLET (FP) PO SCH (21:16)
[2018-07-07] MEDS: LATANOPROST 0.005% OPHTH SOLN 2.5ML BOTTLE OD SCH (21:17)
[2018-07-07] MEDS: LIDOCAINE PATCH REMOVAL MC SCH (21:17)
[2018-07-07] MEDS: ACETAMINOPHEN 325 MG TABLET (FP) PO PRN (21:17)
[2018-07-08 07:15] VITALS: BP 141/88; PULSE 87; TEMP 97.7
[2018-07-08] MEDS: NICOTINE 14 MG/24 HOURS TOPICAL PATCH TD SCH (09:39)
[2018-07-08] MEDS: PRENATAL VITAMINS W/ FOLIC ACID TABLET (FP) PO SCH (09:41)
[2018-07-08] MEDS: RANITIDINE HCL 150 MG TABLET (FP) PO SCH (09:41)
[2018-07-08] MEDS: BUDESONIDE/FORMETEROL FUMARATE 80/4.5 mcg INHALER IH SCH (09:42)
[2018-07-08] MEDS: AMMONIUM LACTATE 12% LOTION 225 GM BOTTLE TP SCH (09:42)
[2018-07-08] MEDS: SERTRALINE HCL 25 MG TABLET (FP) PO SCH (09:42)
[2018-07-08] MEDS: ASPIRIN COATED 81 MG TABLET.EC PO SCH (09:42)
[2018-07-08] MEDS: LISINOPRIL 5 MG TABLET (FP) PO SCH (09:42)
[2018-07-08] MEDS: amLODIPine BESYLATE 5 MG TABLET (FP) PO SCH (09:42)
[2018-07-08] MEDS: BACITRACIN 0.9 GM PACKET TP SCH (09:45)
[2018-07-08] MEDS: APIXABAN 5 MG TABLET PO SCH (09:45)
[2018-07-08] MEDS: LIDOCAINE 5% TOPICAL PATCH TP SCH (09:46)
--- NOTE | 2018-07-08 10:37 | PN ---
[facility] Progress Note Note: PT COMPLETED REHAB AND DISCHARGED TODAY. PT HAS BEEN REFERRED TO [facility] FOR CD AFTERCARE. PT REPORTS HE HAS A PCP DR. BAINS AT [facility] AND WILL FOLLOW UP FOR MEDICAL MANAGEMENT WITH THE CLINIC. PT REPORTS HE HAS ALL HIS MEDICATION SUPPLIES. ALERT O X 3. DENIES S/H/I. Home Medications Medication Instructions Recorded Naproxen [Naprosyn -] 500 mg PO BID 05/26/14 Clotrimazole/Betamet Diprop 1 applic TP BID #1 tube 06/02/14 [Lotrisone -] Simvastatin [Zocor -] 40 mg PO HS #30 tablet 12/28/15 Aspirin Coated [Ecotrin -] 81 mg PO DAILY #1 tablet.ec 05/14/17 Atorvastatin Ca [Lipitor] 40 mg PO HS #30 tablet 05/14/17 Budesonide/Formeterol Fumarate 2 puff IH BID #1 inhaler 05/14/17 [SYMBICORT 80/4.5mcg -] Pantoprazole Sodium [Protonix -] 20 mg PO DAILY #30 tablet.ec 05/14/17 Albuterol Sulfate [Proair 90 mcg IH QID 06/29/18 Respiclick] Amoxicillin - [Amoxicillin 500mg 500 mg PO TID 06/29/18 Capsule -] Apixaban [Eliquis -] 5 mg PO DAILY 06/29/18 Cyclobenzaprine HCl 5 mg PO BID 06/29/18 Latanoprost 0.005% Eye Drops 1 drop OD HS 06/29/18 [Xalatan 0.005% Eye Drops -] Lisinopril 5 mg PO DAILY 06/29/18 Ranitidine [Zantac -] 150 mg PO BID 06/29/18 Tiotropium [place] [Spiriva] 18 mcg IH DAILY 06/29/18 Topiramate 25 mg PO BID 06/29/18 Mirtazapine [Remeron -] 15 mg PO HS #30 tablet 07/07/18 Quetiapine Fumarate [Seroquel -] 200 mg PO HS #30 tablet 07/07/18 Sertraline HCl 25 mg PO DAILY #30 tablet 07/07/18 Vital Signs - 24 hr 07/08/18 07/08/18 07/08/18 00:30 03:30 07:15 Temperature 97.7 F Pulse Rate 87 Respiratory 18 18 17 Rate Blood Pressure 141/88 Laboratory Tests 06/30/18 06/30/18 06/30/18 07:50 07:50 07:50 WBC 12.6 H RBC 4.63 Hgb 14.0 Hct 41.8 MCV 90.4 MCH 30.3 MCHC 33.5 RDW 14.4 Plt Count 229 MPV 8.8 Sodium 137 Potassium 3.5 Chloride 103 Carbon Dioxide 26 Anion Gap 7 L BUN 27 H Creatinine 1.2 Creat Clearance w eGFR 61.35 POC Glucometer Random Glucose 120 H Calcium 8.5 Total Bilirubin 0.8 AST 110 H ALT 58 Alkaline Phosphatase 73 Total Protein 7.2 Albumin 3.6 Urine Color Urine Appearance Urine pH Ur Specific [place] Urine Protein Urine Glucose (UA) Urine Ketones Urine Blood Urine Nitrite Urine Bilirubin Urine Urobilinogen Ur Leukocyte Esterase RPR Titer Nonreactive HIV 1&2 Antibody Screen HIV P24 Antigen 07/02/18 07/05/18 07/06/18 07:45 07:00 07:26 WBC RBC Hgb Hct MCV MCH MCHC RDW Plt Count MPV Sodium Potassium Chloride Carbon Dioxide Anion Gap BUN Creatinine Creat Clearance w eGFR POC Glucometer 100 Random Glucose Calcium Total Bilirubin AST ALT Alkaline Phosphatase Total Protein Albumin Urine Color Yellow Urine Appearance Clear Urine pH 5.0 Ur Specific [place] 1.014 Urine Protein Negative Urine Glucose (UA) Negative Urine Ketones Negative Urine Blood Negative Urine Nitrite Negative Urine Bilirubin Negative Urine Urobilinogen 0.2 Ur Leukocyte Esterase Negative RPR Titer HIV 1&2 Antibody Screen Negative HIV P24 Antigen Negative 07/07/18 07/08/18 06:46 06:47 WBC RBC Hgb Hct MCV MCH MCHC RDW Plt Count MPV Sodium Potassium Chloride Carbon Dioxide Anion Gap BUN Creatinine Creat Clearance w eGFR POC Glucometer 70 107 Random Glucose Calcium Total Bilirubin AST ALT Alkaline Phosphatase Total Protein Albumin Urine Color Urine Appearance Urine pH Ur Specific [place] Urine Protein Urine Glucose (UA) Urine Ketones Urine Blood Urine Nitrite Urine Bilirubin Urine Urobilinogen Ur Leukocyte Esterase RPR Titer HIV 1&2 Antibody Screen HIV P24 Antigen NAD MEDICALLY STABLE PLAN:FOLLOW UP WITH CD AFTERCARE RECOMMENDED. FOLLOW UP WITH MEDICAL MANAGEMENT AT THE [facility] WITHIN 1 WEEK AFTER DISCHARGE.
== END 2018-07-08 10:15 | disposition home or self-care (01) | DRG 897 ==
LOC: YASAS 21:07 → Y6N 23:16 → UNDOADMIN 23:16 → Y5N 06-30 00:21
PROVIDERS: ADMIT Surgery; ATTEND Surgery
PROC: HZ2ZZZZ Detoxification Services for Substance Abuse Treatment (ICD-10-PCS; principal; 2018-06-30)
DX: F10.230 Alcohol dependence with withdrawal, uncomplicated (principal); F14.20 Cocaine dependence, uncomplicated; F31.81 Bipolar II disorder; F17.210 Nicotine dependence, cigarettes, uncomplicated; F43.10 Post-traumatic stress disorder, unspecified; I10 Essential (primary) hypertension; K21.9 Gastro-esophageal reflux disease without esophagitis; J45.909 Unspecified asthma, uncomplicated; L85.3 Xerosis cutis; R63.4 Abnormal weight loss; E78.5 Hyperlipidemia, unspecified; H40.9 Unspecified glaucoma; Z90.2 Acquired absence of lung [part of]; Z86.718 Personal history of other venous thrombosis and embolism; Z91.14 Patient's other noncompliance with medication regimen; Z97.4 Presence of external hearing-aid; Z79.01 Long term (current) use of anticoagulants; Z91.013 Allergy to seafood
CPT/HCPCS: 36415; 80053; 81003; 82962; 85027; 86593; 87389; 93005; 93010